=== PATIENT | female | born 1995 | race Caucasian/White ===

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

== ENCOUNTER 2017-01-03 02:03 | Emergency (ER) | payer BC ==
[2017-01-03 02:14] VITALS: RESP 16
[2017-01-03] MEDS ORDERED: HYDROmorphONE/DILAUDID 1 MG/ML SYR IVP ONE (02:49)
[2017-01-03] MEDS ORDERED: NS 1,000 ML IV ONE (02:49)
[2017-01-03 02:54] LABS: % IMMATURE GRANULYOCYTES 0.3 % (0.0-1.1); ABSOLUTE IMMATURE GRANULOCYTES 0.02 10^3/uL (0.00-0.10); ADD DIFF? NO; ADD MORPH? NO; ADD SCAN? NO; ATYPICAL LYMPHOCYTE FLAG 40 (0-99); FRAGMENT RBC FLAG 0 (0-99); HEMATOCRIT 44.6 % (38.0-47.0); HEMOGLOBIN 14.7 g/dL (12.6-16.3); LEFT SHIFT FLG 0 (0-99); LIPEMIA HEMOLYSIS FLAG 80 (0-99); MEAN CELL HEMOGLOBIN 27.9 pg (27.9-34.1); MEAN CELL VOLUME 84.6 fL (81.5-99.8); MEAN PLATELET VOLUME 10.2 fL (8.7-11.7); PLATELET CLUMPS FLAG 40 (0-99); PLATELET COUNT 197 10^3/uL (150-400); RED BLOOD CELL COUNT 5.27 10^6/uL (4.18-5.33)
[2017-01-03 03:06] LABS: ANION GAP 16 mEq/L (8-16); CALCIUM 9.7 mg/dL (8.5-10.4); CARBON DIOXIDE 14 mEq/l (22-31); CHLORIDE 111 mEq/L (97-110); CREATININE 0.7 mg/dL (0.6-1.0); GLOMERULAR FILTRATION RATE > 60; GLUCOSE 89 mg/dL (70-100); POTASSIUM 4.5 mEq/L (3.5-5.2); SODIUM 141 mEq/L (134-144)
--- NOTE | 2017-01-03 04:01 | EDPHY ---
H & P Stated Complaint: lower abd pain Time Seen by Provider: 01/03/17 02:42 HPI/ROS: Chief Complaint: Severe pelvic cramping HPI: 21-year-old female with a history of severe menstrual cramps in the past presenting with severe lower pelvic pain consistent with her prior episodes of cramping. Patient has had multiple emergency department visits for this. She has been seen by OBGYN and started on oral contraceptives which have provided some minimal relief for the last 2 months but still gets very severe cramps which keep her bed for the 1st couple of her menstrual period. What is different this time says she started having severe cramping several days ago which then got better but is returned again tonight. It feels just like her prior episodes in the past. She has had multiple ultrasounds. She in has taken 6 tablets of Advil over the course of the last several hours without any significant relief. No nausea or vomiting. No urinary urgency or frequency. Does not believe she is and is not sexually active. ROS: 10 point Review of Systems is negative except as noted in the HPI. PMH: Dysmenorrhea Medications: Oral contraceptives Allergies: Penicillin Social History: No smoking, no alcohol, no recreational drug use Family History: non-contributory Physical Exam: Gen: Awake, Alert, No Distress HEENT: Nose: no rhinorrhea Eyes: PERRLA, EOMI Mouth: Moist mucosa Neck: Supple, no JVD Chest: nontender, lungs clear to auscultation Heart: S1, S2 normal, no murmur Abd: Soft, Rodriges suprapubic tenderness, no adnexal tenderness, no guarding Back: no CVA tenderness, no midline tenderness Ext: no edema, non-tender Skin: no rash Neuro: CN II-XII intact, Sensation grossly intact, Strength 5/5 in bilateral upper and lower extremities - Personal History LMP (Females 10-55): Now Current Tetanus/Diphtheria Vaccine: Yes - Medical/Surgical History Hx Asthma: No Hx Chronic Respiratory Disease: No Hx Diabetes: No Hx Cardiac Disease: No Hx Renal Disease: No Hx Cirrhosis: No Hx Alcoholism: No Hx HIV/AIDS: No Hx Splenectomy or Spleen Trauma: No Other PMH: PMH: heavy periods. PSH: hand surgery - Social History Smoking Status: Never smoked Constitutional: Initial Vital Signs Temperature (C) 36.5 C 01/03/17 02:10 Heart Rate 93 01/03/17 02:10 Respiratory Rate 16 01/03/17 02:10 Blood Pressure 107/65 01/03/17 02:10 O2 Sat (%) 94 01/03/17 02:10 O2 Delivery Mode Room Air Allergies/Adverse Reactions: amoxicillin Allergy (Verified 08/10/16 20:46) Penicillins Allergy (Verified 08/10/16 20:46) Medical Decision Making ED Course/Re-evaluation: 21-year-old with dysmenorrhea. No other symptoms acute abdomen at this time. She has no adnexal tenderness. Will check a test. Do not think she requires an ultrasound as these symptoms are consistent with prior episodes. Will treat with IV analgesia and reassess. 0410 patient is feeling significantly improved after IV hydromorphone. Pain is on 1 on 10. Repeat examination her abdomen is soft and nontender. Plan will be to discharge her with follow up with OBGYN. Also referred her to the on- call for another opinion regarding management of her dysmenorrhea. There is no evidence of acute abdomen at this time. - Data Points Laboratory Results: Laboratory Results 01/03/17 02:45 01/03/17 02:45 01/03/17 01/03/17 01/03/17 02:45 02:45 02:45 WBC 6.17 10^3/uL 10^3/uL (3.80-9.50) RBC 5.27 10^6/uL 10^6/uL (4.18-5.33) Hgb 14.7 g/dL g/dL (12.6-16.3) Hct 44.6 % % (38.0-47.0) MCV 84.6 fL fL (81.5-99.8) MCH 27.9 pg pg (27.9-34.1) MCHC 33.0 g/dL g/dL (32.4-36.7) RDW 13.0 % % (11.5-15.2) Plt Count 197 10^3/uL 10^3/uL (150-400) MPV 10.2 fL fL (8.7-11.7) Neut % (Auto) 38.4 % L % (39.3-74.2) Lymph % (Auto) 47.0 % H % (15.0-45.0) [place] % (Auto) 11.3 % % (4.5-13.0) Eos % (Auto) 2.4 % % (0.6-7.6) Baso % (Auto) 0.6 % % (0.3-1.7) Nucleat RBC Rel Count 0.0 % % (0.0-0.2) Absolute Neuts (auto) 2.36 10^3/uL 10^3/uL (1.70-6.50) Absolute Lymphs (auto) 2.90 10^3/uL 10^3/uL (1.00-3.00) Absolute Monos (auto) 0.70 10^3/uL 10^3/uL (0.30-0.80) Absolute Eos (auto) 0.15 10^3/uL 10^3/uL (0.03-0.40) Absolute Basos (auto) 0.04 10^3/uL 10^3/uL (0.02-0.10) Absolute Nucleated RBC 0.00 10^3/uL 10^3/uL (0-0.01) Immature Gran % 0.3 % % (0.0-1.1) Immature Gran # 0.02 10^3/uL 10^3/uL (0.00-0.10) Sodium 141 mEq/L mEq/L (134-144) Potassium 4.5 mEq/L mEq/L (3.5-5.2) Chloride 111 mEq/L H mEq/L (97-110) Carbon Dioxide 14 mEq/l L mEq/l (22-31) Anion Gap 16 mEq/L mEq/L (8-16) BUN 15 mg/dL mg/dL (7-23) Creatinine 0.7 mg/dL mg/dL (0.6-1.0) Estimated GFR > 60 Glucose 89 mg/dL mg/dL (70-100) Calcium 9.7 mg/dL mg/dL (8.5-10.4) Beta HCG, Qual NEGATIVE Medications Given: Discontinued Medications Hydromorphone HCl (Dilaudid) 0.5 mg IVP EDNOW ONE Stop: 01/03/17 02:50 Last Admin: 01/03/17 03:01 Dose: 0.5 mg Sodium Chloride (Ns) 1,000 mls @ 0 mls/hr IV ONCE ONE PRN Reason: Wide Open Stop: 01/03/17 02:50 Last Admin: 01/03/17 03:02 Dose: 1,000 mls Departure - Departure Disposition: Home, Routine, Self-Care Clinical Impression: Dysmenorrhea Condition: Good Instructions: Dysmenorrhea (ED) Additional Instructions: Follow up with her OBGYN in 3-4 days for re-evaluation. Return to the emergency depart for increasing pain, uncontrolled bleeding, nausea, vomiting, fevers, chills, or any other concerns. Referrals: Oneyda Saunders MD [Medical Doctor] - As per Instructions
[2017-01-03 04:22] VITALS: BP 104/71; PULSE 68; TEMP 97.9; O2SAT 95
== END 2017-01-03 04:22 | disposition home or self-care (01) ==
DX: N94.6 Dysmenorrhea, unspecified (principal)
CPT/HCPCS: 96374; J1170

== ENCOUNTER 2018-04-25 14:24 | Emergency (ER) | payer BC ==
--- NOTE | 2018-04-25 14:32 | EDPHY ---
H & P Stated Complaint: Abd pain, AMS Time Seen by Provider: 04/25/18 14:31 HPI/ROS: HPI: This is a 23-year-old female who presents with Chief Complaint: Abdominal pain, altered mental status Location: Lower abdomen Quality: Pain Duration: Starting at 7:00 a.m. Signs and Symptoms: no fever, no nausea, no vomiting, no hematemesis, no blood in stool, no abdominal bloating, no diarrhea, no back pain, no urinary symptoms , no vaginal discharge, no indigestion, no chest pain, no shortness of breath Timing: Acute Severity: 03/30 Context: Patient has a history of dysmenorrhea and menstrual cramping presents with sudden onset around 7:00 a.m. Of her menses. Boyfriend at bedside reports that she has been crying since that time and in the position. No recent sexual intercourse. Denies fever, urinary symptoms. Pain is described as suprapubic, nonradiating in nature, constant, and severe. No oral intake today. Reports followed by Dr. Krysta Cha. Modifying Factors: Took Valium without relief Comment: ROS: A comprehensive 10 system review of systems is otherwise negative aside from elements mentioned in the history of present illness. MEDICAL/SURGICAL/SOCIAL HISTORY: Medical history: Heavy periods, anxiety Surgical history: Denies Social history: Nonsmoker. Family history noncontributory. CONSTITUTIONAL: Tearful, eyes remain closed, young adult white female, awake and alert, no obvious distress HEENT: Atraumatic and normocephalic, PERRL, EOMI. Nares patent; no rhinorrhea; no nasal mucosal edema. Tympanic membranes clear. Oropharynx clear, no exudate and moist pink mucosa. Airway patent. No lymphadenopathy. No meningismus. Cardiovascular: Normal S1/S2, regular rate, regular rhythm, without murmur rub or gallop. PULMONARY/CHEST: Symmetrical and nontender. Clear to auscultation bilaterally. Good air movement. No accessory muscle usage. Tachypnea noted ABDOMEN: Soft, nondistended, moderate suprapubic tenderness, no rebound, no guarding, no peritoneal signs, no masses or organomegaly. No CVAT. Bowel sounds heard x4. EXTREMITIES: 2/2 pulses, strength 5/5, no deformities, no clubbing, no cyanosis or edema. NEUROLOGICAL: no focal neuro deficits. GCS 15. SKIN: Warm and dry, no erythema. no rash. Good capillary refill. Source: Patient Exam Limitations: No limitations - Personal History LMP (Females 10-55): Now Current Tetanus/Diphtheria Vaccine: Yes - Medical/Surgical History Hx Asthma: No Hx Chronic Respiratory Disease: No Hx Diabetes: No Hx Cardiac Disease: No Hx Renal Disease: No Hx Cirrhosis: No Hx Alcoholism: No Hx HIV/AIDS: No Hx Splenectomy or Spleen Trauma: No Other PMH: PMH: heavy periods. PSH: hand surgery - Social History Smoking Status: Never smoked Constitutional: Initial Vital Signs Heart Rate 90 04/25/18 14:25 Respiratory Rate 24 H 04/25/18 14:25 O2 Sat (%) 98 04/25/18 14:25 O2 Delivery Mode Room Air Allergies/Adverse Reactions: amoxicillin Allergy (Verified 08/10/16 20:46) Penicillins Allergy (Verified 08/10/16 20:46) Home Medications: Medication Instructions Recorded Aspirin/Acetaminophen/Caffeine 02/03/18 [Pamprin Max Pain Relief Caplet] Cyclobenzaprine [Flexeril 10 MG 10 mg PO Q8 PRN #15 tab 02/03/18 (*)] traMADol [Ultram 50 mg (*)] 02/03/18 Diazepam [Valium 2 MG (*)] 2 mg PO Q8 PRN #10 tab 04/25/18 Medical Decision Making - Diagnostics Imaging Results: Imaging Impressions Pelvic/Renal Ultrasound 04/25/18 14:36 Impression: Normal pelvic ultrasound. Findings discussed with Estelita Maki 04/25/2018 at 15:37. ED Course/Re-evaluation: Vital signs reviewed and stable upon arrival. Tachypnea noted likely due to pain/anxiety. IV access and laboratory studies obtained. Urinalysis ordered. Given 1 L normal saline, IV Toradol 30 mg IV Ativan 1 mg. Pelvic ultrasound ordered 1515: Labs reviewed. No signs of leukocytosis/anemia/platelet dysfunction/THIAGO/ elevated LFTs/electrolyte imbalance/pancreatitis/. 1537: Called by Radiology, Dr. Engle, who advises that pelvic ultrasound shows no signs of ovarian torsion, ovarian cyst, ectopic , free fluid. There is good blood flow to both ovaries. 1618: Urinalysis shows 3+ blood, 50-182 RBCs, 5-10 WBCs and trace bacteria. No clear signs of infection. Hematuria consistent with menses. Patient reports adequate relief of pain. Ambulating back and forth to the bathroom without difficulty. Given a prescription for Valium and referral back to Dr. Cha to discuss further interventions for severe menstrual cramps. This patient was seen under the supervision of my secondary supervising physician. I evaluated care for this patient independently. Discussed this patient with Dr. Goodwin. Differential Diagnosis: Abdominal pain in a female including but not limited to ovarian cyst, pelvic inflammatory disease, ovarian torsion, urinary tract infection, and appendicitis. - Data Points Laboratory Results: Laboratory Results 04/25/18 14:39 04/25/18 14:39 04/25/18 04/25/18 04/25/18 15:55 14:39 14:39 WBC RBC Hgb Hct MCV MCH MCHC RDW Plt Count MPV Neut % (Auto) Lymph % (Auto) [place] % (Auto) Eos % (Auto) Baso % (Auto) Nucleat RBC Rel Count Absolute Neuts (auto) Absolute Lymphs (auto) Absolute Monos (auto) Absolute Eos (auto) Absolute Basos (auto) Absolute Nucleated RBC Immature Gran % Immature Gran # Sodium 139 mEq/L mEq/L (135-145) Potassium 3.9 mEq/L mEq/L (3.3-5.0) Chloride 107 mEq/L mEq/L (97-110) Carbon Dioxide 18 mEq/l L mEq/l (22-31) Anion Gap 14 mEq/L mEq/L (6-14) BUN 18 mg/dL mg/dL (7-23) Creatinine 0.7 mg/dL mg/dL (0.6-1.0) Estimated GFR > 60 Glucose 109 mg/dL H mg/dL (70-100) Calcium 9.7 mg/dL mg/dL (8.5-10.4) Total Bilirubin 0.6 mg/dL mg/dL (0.1-1.4) Conjugated Bilirubin 0.1 mg/dL mg/dL (0.0-0.5) Unconjugated Bilirubin 0.5 mg/dL mg/dL (0.0-1.1) AST 34 IU/L IU/L (14-46) ALT 28 IU/L IU/L (9-52) Alkaline Phosphatase 118 IU/L IU/L (38-126) Total Protein 7.9 g/dL g/dL (6.3-8.2) Albumin 4.6 g/dL g/dL (3.5-5.0) Lipase 77 IU/L IU/L (23-300) Beta HCG, Qual NEGATIVE Urine Color YELLOW Urine Appearance HAZY Urine pH 5.0 (5.0-7.5) Ur Specific [place] 1.030 (1.002-1.030) Urine Protein 2+ H (NEGATIVE) Urine Ketones NEGATIVE (NEGATIVE) Urine Blood 3+ H (NEGATIVE) Urine Nitrate NEGATIVE (NEGATIVE) Urine Bilirubin NEGATIVE (NEGATIVE) Urine Urobilinogen NEGATIVE EU EU (0.2-1.0) Ur Leukocyte Esterase NEGATIVE (NEGATIVE) Urine RBC 50-182 /hpf H /hpf (0-3) Urine WBC 5-10 /hpf H /hpf (0-3) Ur Epithelial Cells TRACE /lpf /lpf (NONE-1+) Urine Bacteria TRACE /hpf H /hpf (NONE SEEN) Urine Mucus 3+ /lpf H /lpf (NONE-1+) Urine Glucose NEGATIVE (NEGATIVE) 04/25/18 14:39 WBC 8.64 10^3/uL 10^3/uL (3.80-9.50) RBC 5.22 10^6/uL 10^6/uL (4.18-5.33) Hgb 14.5 g/dL g/dL (12.6-16.3) Hct 42.9 % % (38.0-47.0) MCV 82.2 fL fL (81.5-99.8) MCH 27.8 pg L pg (27.9-34.1) MCHC 33.8 g/dL g/dL (32.4-36.7) RDW 13.3 % % (11.5-15.2) Plt Count 318 10^3/uL 10^3/uL (150-400) MPV 9.9 fL fL (8.7-11.7) Neut % (Auto) 47.4 % % (39.3-74.2) Lymph % (Auto) 38.4 % % (15.0-45.0) [place]ukes % (Auto) 11.0 % % (4.5-13.0) Eos % (Auto) 2.2 % % (0.6-7.6) Baso % (Auto) 0.5 % % (0.3-1.7) Nucleat RBC Rel Count 0.0 % % (0.0-0.2) Absolute Neuts (auto) 4.10 10^3/uL 10^3/uL (1.70-6.50) Absolute Lymphs (auto) 3.32 10^3/uL H 10^3/uL (1.00-3.00) Absolute Monos (auto) 0.95 10^3/uL H 10^3/uL (0.30-0.80) Absolute Eos (auto) 0.19 10^3/uL 10^3/uL (0.03-0.40) Absolute Basos (auto) 0.04 10^3/uL 10^3/uL (0.02-0.10) Absolute Nucleated RBC 0.00 10^3/uL 10^3/uL (0-0.01) Immature Gran % 0.5 % % (0.0-1.1) Immature Gran # 0.04 10^3/uL 10^3/uL (0.00-0.10) Sodium Potassium Chloride Carbon Dioxide Anion Gap BUN Creatinine Estimated GFR Glucose Calcium Total Bilirubin Conjugated Bilirubin Unconjugated Bilirubin AST ALT Alkaline Phosphatase Total Protein Albumin Lipase Beta HCG, Qual Urine Color Urine Appearance Urine pH Ur Specific [place] Urine Protein Urine Ketones Urine Blood Urine Nitrate Urine Bilirubin Urine Urobilinogen Ur Leukocyte Esterase Urine RBC Urine WBC Ur Epithelial Cells Urine Bacteria Urine Mucus Urine Glucose Medications Given: Discontinued Medications Sodium Chloride (Ns) 1,000 mls @ 0 mls/hr IV EDNOW ONE; Wide Open PRN Reason: Protocol Stop: 04/25/18 14:34 Last Admin: 04/25/18 14:45 Dose: 1,000 mls Ketorolac Tromethamine (Toradol) 30 mg IVP EDNOW ONE Stop: 04/25/18 14:34 Last Admin: 04/25/18 14:46 Dose: 30 mg Lorazepam (Ativan Injection) 1 mg IVP EDNOW ONE Stop: 04/25/18 14:37 Last Admin: 04/25/18 14:48 Dose: 1 mg Departure - Departure Disposition: Home, Routine, Self-Care Clinical Impression: Severe menstrual cramps Condition: Good Instructions: Dysmenorrhea (ED) Additional Instructions: Rest as much as possible until you are feeling better. Consume a minimum of 8-10 glasses of water or electrolyte fluid replacement drinks that include Gatorade, Powerade, Pedialyte. Eat a bland diet for the next 48 hours and then slowly advance as tolerated. Apply heating pad or warm compress to your lower abdomen as needed for menstrual cramps. Take diazepam every 8 hr as needed for menstrual cramps. Follow up with OBGYN in the next 5-7 days. Referrals: Krysta Cha MD [Medical Doctor] - As per Instructions Prescriptions: Diazepam [Valium 2 MG (*)] 2 mg PO Q8 PRN #10 tab PRN Reason: Pain, Severe
[2018-04-25] MEDS ORDERED: NS 1,000 ML IV ONE (14:33)
[2018-04-25] MEDS ORDERED: KETOROLAC 30 MG/1 ML SDV IVP ONE (14:33)
[2018-04-25] MEDS ORDERED: LORazepam 2 MG/ML INJ IVP ONE (14:36)
[2018-04-25 14:48] LABS: PLATELET COUNT 318 10^3/uL (150-400)
[2018-04-25 16:29] VITALS: BP 112/60
== END 2018-04-25 16:32 | disposition home or self-care (01) ==
DX: N94.6 Dysmenorrhea, unspecified (principal); R06.82 Tachypnea, not elsewhere classified
CPT/HCPCS: 96374; J1885; J2060

== ENCOUNTER 2018-05-20 15:54 | Emergency (ER) | payer BC ==
--- NOTE | 2018-05-20 16:04 | EDPHY ---
H & P Stated Complaint: menstrual cramps Time Seen by Provider: 05/20/18 16:00 HPI/ROS: HPI: This is a 23-year-old female who presents with Chief Complaint: Menstrual cramps Location: pelvic Quality: Cramping Duration: Started around 11:00 a.m. Signs and Symptoms: no fever, no nausea, no vomiting, no hematemesis, no blood in stool, no abdominal bloating, no diarrhea, no back pain, no urinary symptoms , no vaginal discharge, no indigestion, no chest pain, no shortness of breath Timing: Acute on chronic Severity: 03/30 Context: Patient reports that around 11:00 a.m. She started her menses today and it was accompanied by severe, intermittent, bilateral pelvic cramping. She has a history of anxiety and dysmenorrhea. She is followed by [facility]. Patient reports that they have tried multiple interventions without any avail to help her menstrual cramping each month. Chart review shows that a cell this patient on 04/25/2018 with negative laboratory studies and ultrasound that was unremarkable for ovarian torsion, ovarian cyst, free fluid, ectopic . Boyfriend at bedside reports that patient has been crying all day. No appetite has not eaten or drank food today. Patient denies any urinary symptoms, vaginal discharge. No recent sexual intercourse. Patient reports that she is bleeding per her normal and not any heavier than usual. Modifying Factors: None Comment: ROS: A comprehensive 10 system review of systems is otherwise negative aside from elements mentioned in the history of present illness. MEDICAL/SURGICAL/SOCIAL HISTORY: Medical history: Anxiety, heavy periods Surgical history: Denies Social history: Nonsmoker. Denies drug use. Family history noncontributory. CONSTITUTIONAL: Crying out, thrashing in bed, nontoxic appearing young adult white female, awake and alert, no obvious distress HEENT: Atraumatic and normocephalic, PERRL, EOMI. Nares patent; no rhinorrhea; no nasal mucosal edema. Tympanic membranes clear. Oropharynx clear, no exudate and moist pink mucosa. Airway patent. No lymphadenopathy. No meningismus. Cardiovascular: Normal S1/S2, regular rate, regular rhythm, without murmur rub or gallop. PULMONARY/CHEST: Symmetrical and nontender. Clear to auscultation bilaterally. Good air movement. No accessory muscle usage. ABDOMEN: Soft, nondistended, mild suprapubic tenderness, no rebound, no guarding, no peritoneal signs, no masses or organomegaly. No CVAT. EXTREMITIES: 2/2 pulses, strength 5/5, no deformities, no clubbing, no cyanosis or edema. NEUROLOGICAL: no focal neuro deficits. GCS 15. SKIN: Warm and dry, no erythema. no rash. Good capillary refill. Source: Patient Exam Limitations: No limitations - Personal History LMP (Females 10-55): 22-28 Days Ago Current Tetanus/Diphtheria Vaccine: Yes Current Tetanus Diphtheria and Acellular Pertussis (TDAP): Yes - Medical/Surgical History Hx Asthma: No Hx Chronic Respiratory Disease: No Hx Diabetes: No Hx Cardiac Disease: No Hx Renal Disease: No Hx Cirrhosis: No Hx Alcoholism: No Hx HIV/AIDS: No Hx Splenectomy or Spleen Trauma: No Other PMH: PMH: heavy periods. PSH: hand surgery - Social History Smoking Status: Never smoked Constitutional: Initial Vital Signs Temperature (C) 36.4 C 05/20/18 15:58 Heart Rate 83 05/20/18 15:58 Respiratory Rate 20 05/20/18 15:58 Blood Pressure 98/71 L 05/20/18 15:58 O2 Sat (%) 98 05/20/18 15:58 O2 Delivery Mode Room Air Allergies/Adverse Reactions: amoxicillin Allergy (Verified 05/20/18 15:57) Penicillins Allergy (Verified 05/20/18 15:57) Home Medications: Medication Instructions Recorded traMADol [Ultram 50 mg (*)] 02/03/18 Diazepam [Valium 2 MG (*)] 2 mg PO Q8 PRN #10 tab 04/25/18 Promethazine HCl [Phenergan 25mg 25 mg PO Q4-6PRN PRN #12 tab 05/20/18 (*)] Medical Decision Making ED Course/Re-evaluation: Vital signs reviewed and stable upon arrival. IV access and laboratory studies No indication to repeat pelvic ultrasound at this time. Discussed this with patient and she adamantly refused as performed less than 30 days ago. Given 1 L normal saline, IV Ativan 1 mg, IV Toradol 30 mg and IV Zofran 4 mg 1638: Labs reviewed. No signs of leukocytosis/anemia/platelet dysfunction/THIAGO/ elevated LFTs/electrolyte imbalance/pancreatitis. 1650: Reassessed patient who reports complete relief of symptoms and asking to be discharged home to the care of her boyfriend. Suspect there is an anxiety component. This patient was seen under the supervision of my secondary supervising physician. I evaluated care for this patient independently. Discussed this patient with Dr. Tomlin who did not see the patient. Differential Diagnosis: Abdominal pain in a female including but not limited to ovarian cyst, pelvic inflammatory disease, ovarian torsion, urinary tract infection, and appendicitis. - Data Points Laboratory Results: Laboratory Results 05/20/18 16:14 05/20/18 16:14 05/20/18 05/20/18 05/20/18 16:14 16:14 16:14 WBC 8.91 10^3/uL 10^3/uL (3.80-9.50) RBC 4.91 10^6/uL 10^6/uL (4.18-5.33) Hgb 13.8 g/dL g/dL (12.6-16.3) Hct 40.0 % % (38.0-47.0) MCV 81.5 fL fL (81.5-99.8) MCH 28.1 pg pg (27.9-34.1) MCHC 34.5 g/dL g/dL (32.4-36.7) RDW 13.5 % % (11.5-15.2) Plt Count 290 10^3/uL 10^3/uL (150-400) MPV 9.8 fL fL (8.7-11.7) Neut % (Auto) 58.7 % % (39.3-74.2) Lymph % (Auto) 28.5 % % (15.0-45.0) [place] % (Auto) 10.8 % % (4.5-13.0) Eos % (Auto) 1.3 % % (0.6-7.6) Baso % (Auto) 0.4 % % (0.3-1.7) Nucleat RBC Rel Count 0.0 % % (0.0-0.2) Absolute Neuts (auto) 5.22 10^3/uL 10^3/uL (1.70-6.50) Absolute Lymphs (auto) 2.54 10^3/uL 10^3/uL (1.00-3.00) Absolute Monos (auto) 0.96 10^3/uL H 10^3/uL (0.30-0.80) Absolute Eos (auto) 0.12 10^3/uL 10^3/uL (0.03-0.40) Absolute Basos (auto) 0.04 10^3/uL 10^3/uL (0.02-0.10) Absolute Nucleated RBC 0.00 10^3/uL 10^3/uL (0-0.01) Immature Gran % 0.3 % % (0.0-1.1) Immature Gran # 0.03 10^3/uL 10^3/uL (0.00-0.10) Sodium 138 mEq/L mEq/L (135-145) Potassium 3.6 mEq/L mEq/L (3.3-5.0) Chloride 109 mEq/L mEq/L (97-110) Carbon Dioxide 19 mEq/l L mEq/l (22-31) Anion Gap 10 mEq/L mEq/L (6-14) BUN 14 mg/dL mg/dL (7-23) Creatinine 0.7 mg/dL mg/dL (0.6-1.0) Estimated GFR > 60 Glucose 108 mg/dL H mg/dL (70-100) Calcium 9.7 mg/dL mg/dL (8.5-10.4) Total Bilirubin 0.6 mg/dL mg/dL (0.1-1.4) Conjugated Bilirubin 0.3 mg/dL mg/dL (0.0-0.5) Unconjugated Bilirubin 0.3 mg/dL mg/dL (0.0-1.1) AST 31 IU/L IU/L (14-46) ALT 28 IU/L IU/L (9-52) Alkaline Phosphatase 106 IU/L IU/L (38-126) Total Protein 7.6 g/dL g/dL (6.3-8.2) Albumin 4.7 g/dL g/dL (3.5-5.0) Lipase 93 IU/L IU/L (23-300) Beta HCG, Qual NEGATIVE Medications Given: Discontinued Medications Sodium Chloride (Ns) 1,000 mls @ 0 mls/hr IV EDNOW ONE; Wide Open PRN Reason: Protocol Stop: 05/20/18 16:06 Last Admin: 05/20/18 16:15 Dose: 1,000 mls Ketorolac Tromethamine (Toradol) 30 mg IVP EDNOW ONE Stop: 05/20/18 16:06 Last Admin: 05/20/18 16:15 Dose: 30 mg Lorazepam (Ativan Injection) 1 mg IVP EDNOW ONE Stop: 05/20/18 16:07 Last Admin: 05/20/18 16:15 Dose: 1 mg Morphine Sulfate (Morphine) 6 mg IVP EDNOW ONE Stop: 05/20/18 16:06 Last Admin: 05/20/18 16:19 Dose: Not Given Ondansetron HCl (Zofran) 4 mg IVP EDNOW ONE Stop: 05/20/18 16:06 Last Admin: 05/20/18 16:15 Dose: 4 mg Departure - Departure Disposition: Home, Routine, Self-Care Clinical Impression: Dysmenorrhea, Severe menstrual cramps Condition: Good Instructions: Dysmenorrhea (ED) Additional Instructions: Consume a minimum of 8-10 glasses of water or electrolyte fluid replacement drinks that include Gatorade, Powerade, Pedialyte. Eat a bland diet for the next 48 hours and then slowly advance as tolerated. Take Promethazine 1 tab every 4-6 hours as needed for nausea, vomiting. Take Tylenol 650 mg every 4 hr and/or ibuprofen 600 mg every 8 hr as needed for pain. Follow-up with [facility] to discuss menstrual cramps and intervention options. Referrals: [facility] [Provider Group] - As per Instructions Prescriptions: Promethazine HCl [Phenergan 25mg (*)] 25 mg PO Q4-6PRN PRN #12 tab PRN Reason: Nausea/Vomiting, Use 1st
[2018-05-20] MEDS ORDERED: KETOROLAC 30 MG/1 ML SDV IVP ONE (16:05)
[2018-05-20] MEDS ORDERED: ONDANSETRON 4 MG/2 ML VIAL IVP ONE (16:05)
[2018-05-20] MEDS ORDERED: NS 1,000 ML IV ONE (16:05)
[2018-05-20] MEDS ORDERED: LORazepam 2 MG/ML INJ IVP ONE (16:06)
[2018-05-20 16:24] LABS: PLATELET COUNT 290 10^3/uL (150-400)
[2018-05-20 16:55] VITALS: BP 114/76
== END 2018-05-20 16:56 | disposition home or self-care (01) ==
DX: N94.6 Dysmenorrhea, unspecified (principal); E86.9 Volume depletion, unspecified; F41.9 Anxiety disorder, unspecified; Z88.0 Allergy status to penicillin
CPT/HCPCS: 96374; J1885; J2060; J2405